=== PATIENT | female | born 1975 | race African-American/Black ===

== ENCOUNTER 2024-02-24 16:00 | Outpatient (CLI) | payer OTHER | END 2024-02-24 16:01 | disposition home or self-care (01) | LOC: CSHSLEEP 16:00 | PROVIDERS: ATTEND Family Medicine | DX: G47.33 Obstructive sleep apnea (adult) (pediatric) (principal); R53.83 Other fatigue; R09.89 Other specified symptoms and signs involving the circulatory and respiratory systems; R51.9 Headache, unspecified; F31.9 Bipolar disorder, unspecified; R06.83 Snoring; J44.9 Chronic obstructive pulmonary disease, unspecified; I11.9 Hypertensive heart disease without heart failure; I25.2 Old myocardial infarction | CPT/HCPCS: 95811 ==